=== PATIENT | male | born 1980 | race African-American/Black ===

== ENCOUNTER 2022-06-23 18:07 | Emergency (ER) | payer MEDICAID ==
[~2022-06-23] VITALS: Ht 177.8 cm; Wt 117.9 kg
--- NOTE | 2022-06-23 18:11 | NUR ---
BIBA TO ROOM 5
[2022-06-23 18:17] VITALS: BP 165/102
--- NOTE | 2022-06-23 18:25 | NUR ---
MD CASEY AT BEDSIDE FOR EVALUATION
[2022-06-23] MEDS ORDERED: KETOROLAC 60 MG/2 ML VIAL IM ONE (18:35)
--- NOTE | 2022-06-23 18:55 | NUR ---
42YO MALE PT BIBA FROM [facility] C/O [place] 06/11 CHEST PAIN [id number]. PER [facility], PT WAS WALKING TO HOSPITAL AND STOPPED AT [facility] TO CALL 911. PT DENIES RADIATION, N/V/D , SOB , FEVR OR CHILLS. UPON ARRIVAL PT LETHARGIC , AROUSABLE TO TOUCH. ON HOME [facility] LPN, BED AT LOWEST POSITION, BED RAILS UPX2. HX:DENIES NKA
--- NOTE | 2022-06-23 19:17 | NUR ---
REPORT GIVEN TO JOSE CORTES . TRANSFER OF CARE AT THIS TIME
--- NOTE | 2022-06-23 20:10 | NUR ---
pt appears to be resting with equal rise and fall of chest wall. vss. all needs met at this time. bed locked in lowest position, side rails x2.
[2022-06-23] MEDS ORDERED: IBUP-2213 PO (20:50)
[2022-06-23 23:19] VITALS: BP 145/80
== END 2022-06-23 23:19 | disposition home or self-care (01) ==
LOC: MED 18:07
DX: R07.89 Other chest pain (principal); E11.9 Type 2 diabetes mellitus without complications; Z79.4 Long term (current) use of insulin; Z79.899 Other long term (current) drug therapy; Z98.890 Other specified postprocedural states
CPT/HCPCS: 96372; 99283; J1885

== ENCOUNTER 2022-07-08 01:30 | Emergency (ER) | payer MEDICAID ==
[~2022-07-08] VITALS: Ht 177.8 cm; Wt 108.9 kg
[~2022-07-08 01:30] MED LIST: IBUP-2213 PO
[2022-07-08 01:35] VITALS: BP 136/92
--- NOTE | 2022-07-08 01:38 | NUR ---
PT OFFLOADED TO [facility]
--- NOTE | 2022-07-08 01:41 | NUR ---
PT NOT PLACED ON C-MONITOR, OK WITH DR. BURGOS. PT IS SI, DENIES ANY CHEST PAIN
[2022-07-08 02:21] LABS: BASOPHILS # (AUTO) 0.1 K/uL (0.00-0.22); EOSINOPHILS # (AUTO) 0.2 K/uL (0-0.4); EOSINOPHILS % (AUTO) 2.9 % (0.0-4.0); HEMATOCRIT 38.2 % (36-52); HEMOGLOBIN 12.8 g/dL (12.0-18.0); LYMPHOCYTES # (AUTO) 1.9 K/uL (2.0-11.5); LYMPHOCYTES % (AUTO) 23.4 % (20.5-51.1); MEAN CORPUSCULAR HEMOGLOBIN 31 pg (27-31); MEAN CORPUSCULAR HGB CONC 34 g/dL (33-37); MEAN CORPUSCULAR VOLUME 93.2 fL (80-94); MONOCYTES # (AUTO) 0.6 K/uL (0.8-1.0); MONOCYTES % (AUTO) 7.3 % (1.7-9.3); NEUTROPHILS # (AUTO) 5.4 K/uL (1.8-7.7); NEUTROPHILS % (AUTO) 65.4 % (42.2-75.2); PLATELET COUNT (AUTO) 266 K/uL (140-450); RED CELL DISTRIBUTION WIDTH 14.8 % (11.6-13.7); WHITE BLOOD COUNT (AUTO) 8.3 K/uL (4.8-10.8)
--- NOTE | 2022-07-08 02:30 | NUR ---
ER [employer] TOOL INFORMED THIS RN OF NOTE THAT PATIENT WROTE WHILE SITTING IN LOBBY. NOTE READ "MA'AM I'M HEARING VOICES AND I WANT TO KILL MYSELF." PT PLACED IN A CHAIR FOR REEVALUATION AND MONITORING.
--- NOTE | 2022-07-08 02:31 | NUR ---
PT TO BED 12 Addendum: 07/08/22 at 0234 by [facility] PT TO CHAIR B
--- NOTE | 2022-07-08 02:49 | NUR ---
PT EVALUATED BY DR. BURGOS
[2022-07-08 02:59] LABS: ALBUMIN 3.5 g/dL (3.4-5.0); ASPARTATE AMINOTRANSFERASE 26 U/L (15-37); CARBON DIOXIDE 30.3 mmol/L (21-32); CREATININE 0.9 mg/dL (0.6-1.3); GFR ARICAN-AMERICAN 120 mL/min (>90); GLUCOSE 78 mg/dL (74-106); LIPASE 229 U/L (73-393); TOTAL BILIRUBIN 0.4 mg/dL (0.0-1.0); UREA NITROGEN, BLOOD 12 mg/dL (7-18)
[2022-07-08 03:00] LABS: ANION GAP 8.7 (8-16); CHLORIDE 103 mmol/L (98-107); SODIUM SERUM 138 mmol/L (136-145)
[2022-07-08 03:20] LABS: SALICYLATE 3.1 mg/dL (2.8-20.0)
[2022-07-08 03:33] LABS: ACETAMINOPHEN < 0.5 ug/ml (10-30)
--- NOTE | 2022-07-08 04:10 | NUR ---
PT TO BED 6. PT IN LOS TO NURSES STATION. SECURITY AT BEDSIDE. WILL CONTINUE TO MONITOR. PT CALM, COOPERATIVE.
[2022-07-08] MEDS ORDERED: ACETAMINOPHEN EXTRA STRENGTH 500 MG TAB PO ONE (04:25)
[2022-07-08] MEDS ORDERED: LORazepam 1 MG TAB PO ONE (04:25)
--- NOTE | 2022-07-08 04:30 | NUR ---
COVID SWAB COLLECTED AND SENT TO LAB
--- NOTE | 2022-07-08 04:34 | NUR ---
PTs BELONGINGS GATHERED BY SECURITY
[2022-07-08 05:23] LABS: BARBITURATE, URINE NEGATIVE ng/ml (NEG <=200); BENZODIAZEPINE, URINE NEGATIVE ng/mL (NEG <=200); CANNABINOID, URINE POSITIVE ng/mL (NEG <=50); COCAINE, URINE NEGATIVE ng/mL (NEG <=300); OPIATE, URINE NEGATIVE ng/mL (NEG <=2000); PHENCYCLIDINE SCREEN,URINE NEGATIVE ng/mL (NEG <=25)
--- NOTE | 2022-07-08 05:30 | NUR ---
PROVIDED SANDWICH TO PT AT THIS TIME. PT CURRENTLY STATES HE STILL IS SI. PT IN LOS TO NURSES STATION. DENIES ANY PAIN AT THIS TIME. WILL CONTINUE TO MONITOR
--- NOTE | 2022-07-08 06:52 | NUR ---
PT STATING "GIVE ME MY STUFF. I WANT TO LEAVE." DR. VALLES NOTIFIED AND AT BEDSIDE FOR REEVALUATION
--- NOTE | 2022-07-08 06:55 | NUR ---
DR. VALLES AT BEDSIDE TO SPEAK WITH PT HE STATES HE DOES NOT WANT TO KILL HIMSELF OR HAVE A PLAN. PT UPSET HE HAS BEEN SITTING IN A CHAIR DURING HIS VISIT WE HAVE NOT HAD A BED TO PLACE THE PT DUE TO HOLDING INPATIENT'S. DR. VALLES EXPLAINED TO PT THAT WE WILL GIVE ALL RESOURCES AND THEN ALSO ASKED THE PT A SECOND TIME IF HE WANTED TO KILL HIMSELF. PT STATED HE WANTED TO LEAVE. OK TO SEND PT AT THIS TIME.
[2022-07-08 07:23] VITALS: BP 136/92
--- NOTE | 2022-07-08 07:23 | NUR ---
PT REFUSED ANY PAPER WORK OR RESOURCES AT THIS TIME. PT LEFT.
== END 2022-07-08 07:23 | disposition home or self-care (01) ==
LOC: MED 01:30
DX: R45.851 Suicidal ideations (principal); Z20.822 Contact with and (suspected) exposure to COVID-19; R07.9 Chest pain, unspecified; E11.9 Type 2 diabetes mellitus without complications; F17.210 Nicotine dependence, cigarettes, uncomplicated; F12.90 Cannabis use, unspecified, uncomplicated; Z98.890 Other specified postprocedural states; Z79.899 Other long term (current) drug therapy
CPT/HCPCS: 36415; 71045; 80053; 80305; 83690; 84484; 85025; 87426; 87635; 93005; 99285; C9803; G0480; G0482